=== PATIENT | female | born 1935 | race Caucasian/White ===

== ENCOUNTER 2018-05-04 19:52 | Inpatient (IN) | payer MEDICARE | END 2018-05-07 14:15 | disposition home or self-care (01) | LOC: ER 19:52 → ORTHO 4S 05-05 08:45 → ED HOLD 21:54 | DX: G45.9 Transient cerebral ischemic attack, unspecified (principal); E86.0 Dehydration; E11.9 Type 2 diabetes mellitus without complications ==